=== PATIENT | male | born 1945 | race Caucasian/White ===

== ENCOUNTER 2024-01-17 09:10 | Outpatient (CLI) | payer MEDICARE, SELFPAY ==
--- OUTSIDE RECORDS SUMMARY | 2024-01-22 06:27 | XMS_ITS | Clinical Summary ---
Author Organization [place] Address [address] [place] [id number] Care Team Providers Care Weigh Box Tender Name Role Phone Ariel Rebolledo MD Primary Care Provider + Allergies No known active allergies Medications No known medications Social History Tobacco Use Types Packs/Day Years Used Date Smoking Tobacco: Some Days Smokeless Tobacco: Never Tobacco Cessation:Ready to Q uit: No; Counseling Given: Yes Adolescent Education Answer Date Record ed Getting School Help Needed Not on file 01/28 Sex and Gender Information Value Date Recorded Sex Assigned at Not on file Gender Identity Not on file Sexual Orientation Not on file Last Filed Vital Signs Vital Sign Reading Time Taken Comments Blood Pressure 142/92 03/31/2020 2:11 PM CUSTOMER CONSULTING MANAGER Pulse - - Temperature - - Respiratory Rate - - Oxygen Saturation - - Inhaled Oxygen Concentration - - Weight 121.1 kg (267 lb) 03/31/2020 2:11 PM CUSTOMER CONSULTING MANAGER Height 172.7 cm (5' 8) 03/31/2020 2:11 PM CUSTOMER CONSULTING MANAGER Body Mass Index 40.6 03/31/2020 2:11 PM CUSTOMER CONSULTING MANAGER Plan of Treatment Not on file Care Teams Weigh Box Tender Relationship Specialty Start Date End Date Ariel Rebolledo MD PCP - General 11/9/20
--- OUTSIDE RECORDS SUMMARY | 2024-01-22 06:27 | XMS_ITS | Referral Summary ---
Author Organization [place] Address [address] [place] [id number] Care Team Providers Care Personal Chef Name Role Phone Ariel Rebolledo MD Primary [...] Comments Blood Pressure 142/92 03/31/2020 2:11 PM ANIME ARTIST Pulse - - Temperature - - Respiratory Rate - - Oxygen Saturation - - Inhaled Oxygen Concentration - - Weight 121.1 kg (267 lb) 03/31/2020 2:11 PM ANIME ARTIST Height 172.7 cm (5' 8) 03/31/2020 2:11 PM ANIME ARTIST Body Mass Index 40.6 03/31/2020 2:11 PM ANIME ARTIST Plan of Treatment Not on file Care Teams Personal Chef Relationship Specialty Start Date End Date Ariel Rebolledo MD PCP - General 11/9/20
--- OUTSIDE RECORDS SUMMARY | 2024-01-22 06:28 | XMS_ITS | Clinical Summary ---
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 Presbyopia 06/27/2006 Hypermetropia 06/27/2006 CERUMEN 08/04/2004 OBESITY 09/01/2003 TOBACCO USE 09/12/2002 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 PROSTATIC HYPERTROPHY 08/22/2001 RASH, OTH NONSPECIFIC SKIN ERUPTION 08/17/1999 Immunizations Name Administration Dates Next Due Td (Age >=7 Years) 05/07/1998 Family History Medical History Relation Name Comments Genetic Other hypertension - brother - mother~diabetes - mother Relation Name Status Comments Other Social History Tobacco Use Types Packs/Day Years Used Date Smoking Tobacco: Former Cigarettes Alcohol Use Standard Drinks/Week Comments No 0 (1 standard drink = 0.6 oz pur e alcohol) Alcoholic Drinks/day: 0 Sex and Gender Information Value Date Recorded Sex Assigned at Not on file Gender Identity Not on file Sexual Orientation Not on file Obstetrics History Last Filed Vital Signs Vital Sign Reading Time Taken Comments Blood Pressure 139/99 06/19/2011 11:38 AM PAPER FINAL INSPECTOR Pulse 89 06/19/2011 11:38 AM PAPER FINAL INSPECTOR Temperature 36.2 ??C (97.2 ??F) 06/17/2003 1 2:00 AM PAPER FINAL INSPECTOR Respiratory Rate 16 08/04/2004 12:0 0 AM PAPER FINAL INSPECTOR Oxygen Saturation - - Inhaled Oxygen Concentration - - Weight 110.1 kg (242 lb 12.8 oz) 11/27/2006 4:00 PM CDT Height 179.1 cm (5' 10.5) 09/26/2005 3:20 PM CD T Body Mass Index 34.35 09/26/2005 3:20 PM CDT Plan of Treatment Health Maintenance Due Date Last Done Comments Tdap 1957 Depression screening for age 12+ 1958 BMI (ht and wt on same day) for age 18+ 1964 Hepatitis C screening for age 18-79 1964 Zoster (shingles) series for age 50+ (1 of 2) 12/22/18 97 RSV vaccine for adults or pr egnancy (1 - 1-dose 60+ series) 2006 Tetanus booster 05/07/2008 05/07/1998 Pneumococcal series for age 65+ (1 of 1 - PCV) 012 COVID-19 vaccine series ( - 2022-24 season) 4 Influenza for age 65+ 01/06/2024
== END 2024-01-17 09:11 | disposition home or self-care (01) ==
LOC: NFLDREF 01-22 06:25
PROVIDERS: PCP Family Medicine; Referring Provider Family Medicine; Visit Provider Family Medicine
DX: Z12.5 Encounter for screening for malignant neoplasm of prostate (principal); E78.5 Hyperlipidemia, unspecified
CPT/HCPCS: 80053; 80061; G0103

== ENCOUNTER 2024-01-28 09:15 | Outpatient (CLI) | payer MEDICARE, SELFPAY ==
--- NOTE | 2024-01-28 09:15 | CRLHL7_ITS ---
For Patients: As a result of the Cures Act, medical imaging exams and procedure reports are released immediately into your electronic medical record. You may view this report before your referring provider. If you have questions, please contact your health care provider. INDICATION: Screening for abdominal aortic aneurysm. Former tobacco use. TECHNIQUE: Ultrasound abdomen aorta with spectral waveform and color Doppler analysis. COMPARISON: None. FINDINGS: Proximal aorta: 1.7 cm. Mid aorta: 2.0 cm. Distal aorta: 2.2 cm. Iliac artery right: 1.4 cm. Iliac artery left: 1.4 cm. Periaortic lymphadenopathy: No. Atherosclerotic changes: No. Aneurysm: No. Dictated by Balbir Salamanca MD @ 01/28/2024 8:36:58 PM (Electronically Signed)
--- OUTSIDE RECORDS SUMMARY | 2024-01-28 09:20 | XMS_ITS | Clinical Summary ---
Author Organization [place] Address [address] [place] [id number] Care Team Providers Care Single Needle Operator Name Role Phone Ariel Rebolledo MD Primary [...] Comments Blood Pressure 142/92 03/31/2020 2:11 PM CLIENT SUPPORT COORDINATOR Pulse - - Temperature - - Respiratory Rate - - Oxygen Saturation - - Inhaled Oxygen Concentration - - Weight 121.1 kg (267 lb) 03/31/2020 2:11 PM CLIENT SUPPORT COORDINATOR Height 172.7 cm (5' 8) 03/31/2020 2:11 PM CLIENT SUPPORT COORDINATOR Body Mass Index 40.6 03/31/2020 2:11 PM CLIENT SUPPORT COORDINATOR Plan of Treatment Not on file Care Teams Single Needle Operator Relationship Specialty Start Date End Date Ariel Rebolledo MD PCP - General 11/9/20
--- OUTSIDE RECORDS SUMMARY | 2024-01-28 09:20 | XMS_ITS | Referral Summary ---
Author Organization [place] Address [address] [place] [id number] Care Team Providers Care Motor Vehicle Salesperson Name Role Phone Ariel Rebolledo MD Primary [...] Comments Blood Pressure 142/92 03/31/2020 2:11 PM ROVING HAULER Pulse - - Temperature - - Respiratory Rate - - Oxygen Saturation - - Inhaled Oxygen Concentration - - Weight 121.1 kg (267 lb) 03/31/2020 2:11 PM ROVING HAULER Height 172.7 cm (5' 8) 03/31/2020 2:11 PM ROVING HAULER Body Mass Index 40.6 03/31/2020 2:11 PM ROVING HAULER Plan of Treatment Not on file Care Teams Motor Vehicle Salesperson Relationship Specialty Start Date End Date Ariel Rebolledo MD PCP - General 11/9/20
--- OUTSIDE RECORDS SUMMARY | 2024-01-28 09:20 | XMS_ITS | Clinical Summary ---
Author Organization [facility] Address [place], [place] [address] Care Team Providers Care Farm Hand Name Role Phone Unavailable Primary Care Provider [...] Comments Blood Pressure 139/99 06/19/2011 11:38 AM REGIONAL MANAGER Pulse 89 06/19/2011 11:38 AM REGIONAL MANAGER Temperature 36.2 ??C (97.2 ??F) 06/17/2003 1 2:00 AM REGIONAL MANAGER Respiratory Rate 16 08/04/2004 12:0 0 AM REGIONAL MANAGER Oxygen Saturation - - Inhaled Oxygen Concentration [...]
== END 2024-01-28 09:16 | disposition home or self-care (01) ==
LOC: US 09:17
PROVIDERS: PCP Family Medicine; Visit Provider Family Medicine
DX: Z13.6 Encounter for screening for cardiovascular disorders (principal); Z87.891 Personal history of nicotine dependence
CPT/HCPCS: 76706

== ENCOUNTER 2025-04-20 09:05 | Outpatient (CLI) | payer MEDICARE, SELFPAY | END 2025-04-20 09:06 | disposition home or self-care (01) | LOC: NFLDREF 04-23 11:17 | PROVIDERS: PCP Family Medicine; Referring Provider Family Medicine; Visit Provider Family Medicine | DX: E78.5 Hyperlipidemia, unspecified (principal); Z13.9 Encounter for screening, unspecified; N40.0 Benign prostatic hyperplasia without lower urinary tract symptoms | CPT/HCPCS: 80053; 80061; G0103 ==